=== PATIENT | male | born 1990 | race African-American/Black ===

== ENCOUNTER 2022-10-22 19:06 | Emergency (ER) | payer OTHER ==
[~2022-10-22] VITALS: Ht 167.6 cm; Wt 87.7 kg
[2022-10-22] MEDS ORDERED: ACETAMINOPHEN 500 MG TAB PO ONE (21:55)
[2022-10-22 22:42] VITALS: BP 124/65
== END 2022-10-22 22:43 | disposition home or self-care (01) ==
LOC: M ED 19:06
DX: S09.90XA Unspecified injury of head, initial encounter (principal); M25.511 Pain in right shoulder; W00.0XXA Fall on same level due to ice and snow, initial encounter; Y92.89 Other specified places as the place of occurrence of the external cause

== ENCOUNTER 2022-10-24 12:07 | Emergency (ER) | payer OTHER ==
[~2022-10-24] VITALS: Ht 167.6 cm; Wt 89.7 kg
[2022-10-24 14:39] VITALS: BP 121/61
== END 2022-10-24 14:44 | disposition home or self-care (01) ==
LOC: M ED 14:23
DX: S06.0X0A Concussion without loss of consciousness, initial encounter (principal); M25.511 Pain in right shoulder; W00.0XXA Fall on same level due to ice and snow, initial encounter; Y92.481 Parking lot as the place of occurrence of the external cause; Y99.1 Military activity; Z88.8 Allergy status to other drugs, medicaments and biological substances; Z91.018 Allergy to other foods

== ENCOUNTER 2024-04-13 07:44 | Emergency (ER) | payer OTHER ==
[~2024-04-13] VITALS: Ht 167.6 cm; Wt 86.7 kg
[2024-04-13 08:40] LABS: BASO % 0.9 % (0.0-1.0); EOS # 0.1 10^3/uL (0.0-0.5); EOS % 1.3 % (0.0-3.0); HEMATOCRIT 40.8 % (42.0-52.0); HEMOGLOBIN 14.1 g/dl (13.5-17.5); LYMPH # 1.8 10^3/uL (1.5-5.0); LYMPH % 39.9 % (24.0-44.0); MEAN CORPUSCULAR HEMOGLOBIN 32.2 pg (27.0-33.0); MEAN CORPUSCULAR HGB CONC 34.6 g/dl (32.0-36.5); MEAN CORPUSCULAR VOLUME 93.2 fl (80.0-96.0); MONO # 0.3 10^3/uL (0.0-0.8); MONO % 6.6 % (2.0-8.0); NEUTROPHILS # 2.3 10^3/uL (1.5-8.5); NEUTROPHILS % 51.1 % (36.0-66.0); PLATELET COUNT, AUTOMATED 232 10^3/uL (150-450); RED BLOOD COUNT 4.38 10^6/uL (4.30-6.10); WHITE BLOOD COUNT 4.6 10^3/uL (4.0-10.0)
[2024-04-13 09:12] LABS: BLOOD UREA NITROGEN 18 MG/DL (9-23); CALCIUM LEVEL 10.1 MG/DL (8.5-10.1); CARBON DIOXIDE LEVEL 32 MMOL/L (20-31); CHLORIDE LEVEL 103 MMOL/L (98-107); CK-MB VALUE MASS < 1.0 NG/ML (<3.6); CREATININE FOR GFR 1.11 MG/DL (0.70-1.30); GLOMERULAR FILTRATION RATE > 60.0 (>60); GLUCOSE, FASTING 104 MG/DL (60-100); POTASSIUM SERUM 3.8 MMOL/L (3.5-5.1); SODIUM LEVEL 138 MMOL/L (136-145)
[2024-04-13 09:14] LABS: CPK CREATINE PHOSPHOKINASE 208 U/L (46-171); MB/CK RELATIVE INDEX 0.48 (< OR =4)
[2024-04-13 11:20] LABS: CK-MB VALUE MASS < 1.0 NG/ML (<3.6)
[2024-04-13 11:22] LABS: CPK CREATINE PHOSPHOKINASE 191 U/L (46-171); MB/CK RELATIVE INDEX 0.52 (< OR =4)
[2024-04-13] MEDS: NS 1,000 ML IV ONE (12:05)
[2024-04-13] MEDS: KETOROLAC 30 MG/ML 1ML VIAL IV ONE (12:06)
[2024-04-13 13:52] VITALS: BP 112/59; TEMP 97.3; O2SAT 98
== END 2024-04-13 13:54 | disposition home or self-care (01) ==
LOC: M ED 07:44
DX: R07.89 Other chest pain (principal); G43.909 Migraine, unspecified, not intractable, without status migrainosus; F10.10 Alcohol abuse, uncomplicated; Z88.8 Allergy status to other drugs, medicaments and biological substances; Z91.018 Allergy to other foods
CPT/HCPCS: 71046; 80048; 82550; 82553; 84484; 85025; 93005; 96374; 99284; J1885